=== PATIENT | female | born 1955 | race Caucasian/White ===

== ENCOUNTER → 2016-09-07 | Outpatient (CLI) | payer MEDICARE ==
--- NOTE | 2016-09-08 08:28 | MM ---
Reason for exam: follow-up at short interval from prior study. Last mammogram was performed 8 months ago. History: Patient is postmenopausal and has history of high-risk lesion on a previous biopsy at age 60. Family history of breast cancer in grandmother. High risk MG pre op needle loc RT of the right breast, February 21, 2016. High risk MG stereo VAD BX RT of the right breast, January 21, 2016. Physical Findings: Nurse did not find any significant physical abnormalities on exam. MG Diagnostic Mammo RT w CAD CC and MLO view(s) were taken of the right breast. Prior study comparison: January 07, 2016, bilateral MG 3d diag mammo w/cad SARY. December 27, 2014, bilateral MG screening mammo w CAD. There are scattered fibroglandular densities. Finding: Architectural distortion in the upper outer quadrant of the right breast consistent with previous surgery. These results were verbally communicated with the patient and result sheet given to the patient on 09/07/16. ASSESSMENT: Benign, BI-RAD 2 RECOMMENDATION: Routine screening mammogram of both breasts in 4 months. Back on schedule for December 2016.
== END | disposition home or self-care (01) ==
LOC: RADMAMWWP 12:47
PROVIDERS: ATTEND Surgery
DX: R92.8 Other abnormal and inconclusive findings on diagnostic imaging of breast (principal)

== ENCOUNTER → 2017-02-26 | Outpatient (CLI) | payer MEDICARE ==
--- NOTE | 2017-03-02 07:40 | MM ---
Reason for exam: screening (asymptomatic). Last mammogram was performed 6 months ago. History: Patient is postmenopausal and has history of high-risk lesion on a previous biopsy at age 60. Family history of breast cancer in grandmother. High risk MG pre op needle loc RT of the right breast, February 21, 2016. High risk MG stereo VAD BX RT of the right breast, January 21, 2016. Physical Findings: A clinical breast exam by your physician is recommended on an annual basis and results should be correlated with mammographic findings. MG Screening Mammo w CAD Bilateral CC and MLO view(s) were taken. Prior study comparison: September 07, 2016, right breast MG diagnostic mammo RT w CAD. January 07, 2016, bilateral MG 3d diag mammo w/cad SARY. There are scattered fibroglandular densities. No significant changes when compared with prior studies. ASSESSMENT: Benign, BI-RAD 2 RECOMMENDATION: Routine screening mammogram of both breasts in 1 year.
== END ==
LOC: RADMAMWWP 07:25
PROVIDERS: ATTEND Family Medicine
DX: Z12.31 Encounter for screening mammogram for malignant neoplasm of breast (principal); Z80.3 Family history of malignant neoplasm of breast

== ENCOUNTER 2017-08-22 15:01 | Emergency (ER) | payer MEDICARE, OTHER ==
[2017-08-22 15:06] VITALS: BP 146/94; PULSE 80; RESP 20; TEMP 98
[2017-08-22] MEDS ORDERED: ACETAMINOPHEN TAB 500 MG TAB PO STA (15:14)
[2017-08-22] MEDS ORDERED: IBUPROFEN 600 MG TAB PO STA (15:14)
--- NOTE | 2017-08-22 15:29 | ED ---
Upper Extremity HPI - General Chief Complaint: Extremity Injury, Upper Stated Complaint: fall Time Seen by Provider: 08/22/17 15:10 Source: patient Mode of arrival: ambulatory Limitations: no limitations - History of Present Illness Initial Comments: 61-year-old female patient presents to the emergency Department with complaints of left shoulder pain after a slip and fall this morning. Patient states that she was coming here to visit an inpatient when she slipped in the parking lot and fell landing on her left shoulder. She states that she did strike her head but did not lose consciousness. She denies any current headache, dizziness, weakness, numbness, tingling, nausea, or vomiting. She states that she is having significant pain with any type of movements of the left shoulder. She states she is having some neck pain. She denies any back pain. She denies any other injuries. Patient denies any chest pain, shortness of breath, abdominal pain, or difficulties with bowel movements or urination. - Related Data Home Medications Medication Instructions Recorded Confirmed Aspirin 325 mg PO HS 04/21/15 02/21/16 Calcium Carbonate [Calcium] 600 mg PO HS 04/21/15 02/21/16 Lisinopril 20 mg PO HS 04/21/15 02/21/16 Melatonin 1 mg PO HS 04/21/15 02/21/16 Potassium 99 mg PO HS 04/21/15 02/21/16 Vitamin B Complex 1 cap PO HS 04/21/15 02/21/16 amLODIPine BESYLATE [Amlodipine 5 mg PO HS 04/21/15 02/21/16 Besylate] Ascorbic Acid [Vitamin C] 1 tab PO HS 02/17/16 02/21/16 Dulaglutide [Trulicity] 1 injection SQ TU 02/17/16 02/21/16 Empagliflozin [Jardiance] 10 mg PO HS 02/17/16 02/21/16 Lynn-3 Fatty Acids/Fish Oil [Fish 1 tab PO HS 02/17/16 02/21/16 Oil 1,000 mg Softgel] metFORMIN HCL [Glucophage] 500 mg PO HS 02/17/16 02/21/16 Previous Rx's Medication Instructions Recorded Hydrocodone/Acetaminophen [[place] 1 - 2 each PO Q4HR PRN #30 tab 02/21/16 5-325] Allergies Allergy/AdvReac Type Severity Reaction Status Date / Time phenytoin sodium Allergy Rash/Hives Verified 08/22/17 15:05 [From Dilantin] phenytoin sodium extended Allergy Rash/Hives Verified 08/22/17 15:05 [From Dilantin] Review of Systems ROS Statement: Those systems with pertinent positive or pertinent negative responses have been documented in the HPI. ROS Other: All systems not noted in ROS Statement are negative. Past Medical History Past Medical History: Chest Pain / Angina, CVA/TIA, Hypertension, Myocardial Infarction (VT) Additional Past Medical History / Comment(s): genetic heart issue, Last Myocardial Infarction Date:: 2011 History of Any Multi-Drug Resistant Organisms: None Reported Past Surgical History: Appendectomy, Breast Surgery, Cholecystectomy, Heart Catheterization Additional Past Surgical History / Comment(s): SBO, RIGHT BREAST BIOPSY Past Anesthesia/Blood Transfusion Reactions: No Reported Reaction Additional Past Anesthesia/Blood Transfusion Reaction / Comment(s): BHUPENDRA TAKES LONG TIME TO AWAKEN. Past Psychological History: No Psychological Hx Reported Smoking Status: Never smoker Past Alcohol Use History: None Reported Past Drug Use History: None Reported - Past Family History Mother Family Medical History: No Reported History General Exam Limitations: no limitations General appearance: alert, in no apparent distress, other (This is a well- developed, well-nourished adult female patient in no acute distress. Vital signs upon presentation are temperature 98.0F, pulse 80, respirations 20, blood pressure 146/94, pulse ox 100% on room air.) Head exam: Present: atraumatic, normocephalic, normal inspection Eye exam: Present: normal appearance, PERRL, EOMI. Absent: scleral icterus, conjunctival injection, periorbital swelling ENT exam: Present: normal exam, normal oropharynx, mucous membranes moist Neck exam: Present: normal inspection, tenderness (Tenderness over the lower cervical spine), full ROM. Absent: meningismus, lymphadenopathy Respiratory exam: Present: normal lung sounds bilaterally. Absent: respiratory distress, wheezes, rales, rhonchi, stridor Cardiovascular Exam: Present: regular rate, normal rhythm, normal heart sounds. Absent: systolic murmur, diastolic murmur, rubs, gallop, clicks Extremities exam: Present: normal inspection, full ROM, tenderness (Tenderness over the left clavicle, the left before meals joint, and the left posterior shoulder), normal capillary refill, other (Skin to the left upper extremities pink, warm, and dry. Cap refills less than 3 seconds. Radial pulses 2+ and equal bilaterally.). Absent: pedal edema, joint swelling, calf tenderness Back exam: Present: normal inspection, other (Nontender, no step-off, no deformity to firm midline palpation of the thoracic and lumbar vertebrae. Full range of motion without pain or limitation.). Absent: vertebral tenderness Neurological exam: Present: alert, oriented X3, CN II-XII intact Psychiatric exam: Present: normal affect, normal mood Skin exam: Present: warm, dry, intact, normal color. Absent: rash Course Vital Signs 08/22/17 15:03 Temperature 98 F Pulse Rate 80 Respiratory 20 Rate Blood Pressure 146/94 O2 Sat by Pulse 100 Oximetry Medical Decision Making - Medical Decision Making 61-year-old female patient presented to the emergency department today for evaluation of left shoulder pain. Physical examination did reveal some tenderness over the clavicle, before meals joint, and posterior shoulder. Patient also has some tenderness in the lower cervical spine. Patient is neurologically intact. X-rays of the cervical spine and the left shoulder were negative for any acute fractures or dislocations. Did discuss the possibility of a rotator cuff or other muscular ligamentous injury with the patient. I will give her a sling, did discuss with her the importance of performing range of motion exercises. She is given a be sent to orthopedics for further evaluation. She is instructed to return here immediately for any new, worsening , or concerning symptoms. She verbalizes understanding and agrees with this plan. - Radiology Data Radiology results: report reviewed, image reviewed 5 views of the cervical spine supplemented with a transthoracic Weiss 2. Findings show prevertebral space is normal. There is straightening of the cervical spine on the lateral view. Minimal disc space narrowing may be present. Foramina are patent. Impression by Dr. Oro shows mild degenerative disc changes within the cervical spine. 3 views of the left shoulder showed a humeral head and articulates of the glenoid. The acromioclavicular junction is normal. No acute fractures or dislocations are evident. A follow-up study can be performed in 7-10 days from acute trauma for continued pain. Impression by Dr. Oro shows normal shoulder. Disposition Clinical Impression: Left shoulder pain Disposition: HOME SELF-CARE Condition: Good Instructions: Rotator Cuff Injury (ED), Shoulder Sprain (ED) Additional Instructions: Follow-up with orthopedics for further evaluation. Wear sling for comfort however removed sling a few times today and attempt range of motion exercises. Take Tylenol Motrin for pain control. Follow-up with her primary care physician for recheck in 1-2 days. Return here immediately for any new, worsening, or concerning symptoms. Referrals: Boris Moraes Jr, [Primary Care Provider] - 1-2 days Time of Disposition: 16:07
--- NOTE | 2017-08-22 16:03 | XR ---
EXAMINATION TYPE: XR shoulder complete LT DATE OF EXAM: 08/22/2017 COMPARISON: NONE HISTORY: Pain TECHNIQUE: Shoulder examined in 3 views FINDINGS: The humeral head articulates with the glenoid. The acromio-clavicular junction is normal. No acute fractures or dislocations are evident. A follow up study can be performed 7-10 days from acute trauma for continued pain. IMPRESSION: 1. Normal Shoulder
--- NOTE | 2017-08-22 16:03 | XR ---
EXAMINATION TYPE: XR cervical spine comp DATE OF EXAM: 08/22/2017 COMPARISON: NONE HISTORY: Pain fall on ice TECHNIQUE: 5 view cervical spine supplemented with a transthoracic swimmer's view. FINDINGS: Prevertebral space is normal. There is straightening of the cervical spine in the lateral v iew. Minimal disc space narrowing may be present. Foramen are patent. IMPRESSION: 1. Mild degenerative disc changes within the cervical spine.
== END 2017-08-22 16:10 | disposition home or self-care (01) ==
LOC: EC 15:01
DX: M25.512 Pain in left shoulder (principal); M54.2 Cervicalgia; M47.812 Spondylosis without myelopathy or radiculopathy, cervical region; I10 Essential (primary) hypertension; I25.2 Old myocardial infarction; Z79.82 Long term (current) use of aspirin; Z79.84 Long term (current) use of oral hypoglycemic drugs; Z79.899 Other long term (current) drug therapy; Z86.79 Personal history of other diseases of the circulatory system; Z88.8 Allergy status to other drugs, medicaments and biological substances; W01.10XA Fall on same level from slipping, tripping and stumbling with subsequent striking against unspecified object, initial encounter; Y93.89 Activity, other specified; Y92.481 Parking lot as the place of occurrence of the external cause
CPT/HCPCS: 72050; 99283

== ENCOUNTER → 2018-04-07 | Outpatient (CLI) | payer MEDICARE ==
--- NOTE | 2018-04-07 09:20 | MM ---
Reason for exam: additional evaluation requested from prior study. Last mammogram was performed 1 year and 1 month ago. History: Patient is postmenopausal and has history of high-risk lesion on a previous biopsy at age 60. Family history of breast cancer in grandmother. High risk MG pre op needle loc RT of the right breast, February 21, 2016. High risk MG stereo VAD BX RT of the right breast, January 21, 2016. Physical Findings: Nurse did not find any significant physical abnormalities on exam. MG Diagnostic Mammo w CAD SARY Bilateral CC and MLO view(s) were taken. Spot compression CC and LM view(s) were taken of the left breast. Prior study comparison: February 26, 2017, bilateral MG screening mammo w CAD. September 07, 2016, right breast MG diagnostic mammo RT w CAD. The breast tissue is heterogeneously dense. This may lower the sensitivity of mammography. There is chronic nodularity in the left breast. Central asymmetric densities anteriorly and posteriorly left CC view appear more defined but disperse on additional spot view. These results were verbally communicated with the patient and result sheet given to the patient on 04/07/18. ASSESSMENT: Negative, BI-RAD 1 RECOMMENDATION: Routine screening mammogram of both breasts in 1 year. Manage on a clinical basis with regard to breast pain.
== END | disposition home or self-care (01) ==
LOC: RADMAMWWP 07:06
PROVIDERS: ATTEND Family Medicine
DX: N64.4 Mastodynia (principal)
CPT/HCPCS: 77066

== ENCOUNTER → 2023-06-29 | Outpatient (CLI) | payer MEDICARE ==
--- NOTE | 2023-06-30 17:17 | MM ---
Reason for Exam: Screening (asymptomatic). Last mammogram was performed 5 year(s) and 3 month(s) ago. Patient History: Menarche at age 13. First Full-Term at age 19. Postmenopausal. Patient has history of breast feeding. 02/21/2016, High risk Core Biopsy on the right side. 01/21/2016, High risk Core Biopsy on the right side. Maternal grandmother had breast cancer. Risk Values: Kathy 5 year model risk: 2.1%. NCI Lifetime model risk: 6.8%. Prior Study Comparison: 09/07/2016 Right Diagnostic Mammogram, [facility]. 02/26/2017 Bilateral Screening Mammogram, [facility]. 04/07/2018 Bilateral Diagnostic Mammogram, [facility]. Tissue Density: There are scattered fibroglandular densities. Findings: Analyzed By CAD. There is redemonstration postexcisional change upper outer quadrant right breast with surgical scar. There is an area of asymmetric density centrally on the right cc view middle depth which is more defined and for which further evaluation is recommended. Chronic nodularity upper outer quadrant left breast. Unchanged asymmetric density outer left breast middle depth. Overall Assessment: Incomplete: need additional imaging evaluation, BI-RAD 0 Management: Special View Mammogram of the right breast. Diagnostic Breast Ultrasound of the right breast. Additional views to include spot 3-D CC, 3-D CC rolled, and 3-D lateral views. Targeted right breast ultrasound if any persisting abnormality. [facility] will attempt to contact patient to return for supplemental views and ultrasound if indicated. Electronically signed and approved by: Pako Dennis M.D. Radiologist
== END | disposition home or self-care (01) ==
LOC: RADMAMWWP 14:01
PROVIDERS: ATTEND Internal Medicine
DX: Z12.31 Encounter for screening mammogram for malignant neoplasm of breast (principal); Z78.0 Asymptomatic menopausal state; Z80.3 Family history of malignant neoplasm of breast
CPT/HCPCS: 77067

== ENCOUNTER → 2023-07-15 | Outpatient (CLI) | payer MEDICARE ==
--- NOTE | 2023-07-15 08:45 | MM ---
Reason for Exam: Additional evaluation requested from abnormal screening. Last screening mammogram was performed less than 1 month ago. Patient History: Menarche at age 13. First Full-Term at age 19. Postmenopausal. Patient has history of breast feeding. 02/21/2016, High risk Core Biopsy on the right side. 01/21/2016, High risk Core Biopsy on the right side. Maternal grandmother had breast cancer. Risk Values: Kathy 5 year model risk: 2.1%. NCI Lifetime model risk: 6.8%. Prior Study Comparison: 08/10/2012 Bilateral Screening Mammogram, [facility]. 12/27/2014 Bilateral Screening Mammogram, [facility]. 01/07/2016 Bilateral Diagnostic Mammogram, [facility]. 09/07/2016 Right Diagnostic Mammogram, [facility]. 02/26/2017 Bilateral Screening Mammogram, [facility]. 04/07/2018 Bilateral Diagnostic Mammogram, [facility]. 06/29/2023 Bilateral MG screening mammo w CAD, [facility]. Tissue Density: Right: There are scattered fibroglandular densities. Findings: Analyzed By CAD. Pattern appears stable. Under compression and rolled views no persistent density in the mid right breast is evident. Medial lateral view is unremarkable. No suspicious groups of microcalcifications, spiculated or lobular masses, architectural distortion or other secondary signs of malignancy are mammographically apparent. Overall Assessment: Benign, BI-RAD 2 Management: Screening Mammogram of both breasts in 1 year. A negative mammogram report should not preclude additional follow up of suspicious palpable abnormalities. Patient should continue monthly self breast exam. A clinical breast exam by your physician is recommended on an annual basis and results should be correlated with mammographic findings. Electronically signed and approved by: Jomar Oro D.O. Radiologis
== END | disposition home or self-care (01) ==
LOC: RADMAMWWP 08:05
PROVIDERS: ATTEND Internal Medicine
DX: R92.321 Mammographic fibroglandular density, right breast (principal); Z78.0 Asymptomatic menopausal state; Z80.3 Family history of malignant neoplasm of breast
CPT/HCPCS: 77061; 77065